=== PATIENT | male | born 1955 | race Caucasian/White ===

== ENCOUNTER 2016-10-20 15:35 | Emergency (ER) | payer BC ==
[2016-10-20] MEDS ORDERED: LORazepam 2 MG/ML MDV IVPUSH ONE (16:04)
[2016-10-20] MEDS ORDERED: Sodium Chloride 0.9% 10 ML Syringe FLUSH PRN (16:04)
--- NOTE | 2016-10-20 16:11 | EDM.PDOC ---
ED HPI GENERAL MEDICAL PROBLEM - General Chief Complaint: Chest Pain Stated Complaint: CHEST PAIN/FLUTTERING Time Seen by Provider: 10/20/16 15:41 Source of Information: Reports: Patient History Limitations: Reports: No Limitations - History of Present Illness INITIAL COMMENTS - FREE TEXT/NARRATIVE: Patient is a 61-year-old male who presents to the ED complaining of a fluttering sensation to his chest. 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 States this fluttering sensation was located to the center of his chest that only lasted for a short period of time. During the interview patient developed similar symptoms as earlier again with also shaking of his arms and hands only lasting for a short period of time. He became lightheaded with no sensation was going to pass out. Denies any shortness of breath or chest pain. States he did become mildly clammy with this episode. Again symptoms resolved. While driving back to [place] where he is staying for the evening he developed another similar episode that was again was short lived and has completely resolved prior admission to the ED. He did have one episode of chest pain to the right upper sternal border describes as a tightness sensation that resolved quickly. Currently has no symptoms. 1 year ago he had similar symptoms and had a full cardiac workup minus heart catheterization. Testing included: stress test, echocardiogram, and Lexiscan. No abnormalities noted. Cause of symptoms related to stress. There is no family history of first degree relative with heart disease. Patient has a history of hypertension, acid reflux, hypercholesteremia, and asthma. Treatments [employer]: Reports: Aspirin Middle Chest Pain Score (Numeric/FACES): 4 - Related Data Allergies Allergy/AdvReac Type Severity Reaction Status Date / Time No Known Allergies Allergy Verified 10/20/16 15:43 Past Medical History Cardiovascular History: Reports: High Cholesterol, Hypertension Respiratory History: Reports: Asthma Psychiatric History: Reports: Anxiety Social & Family History - Family History Family Medical History: Noncontributory - Tobacco Use Smoking Status *Q: Never Smoker - Caffeine Use Caffeine Use: Reports: Coffee - Recreational Drug Use Recreational Drug Use: No ED ROS GENERAL - Review of Systems Review Of Systems: ROS reveals no pertinent complaints other than HPI. ED EXAM, GENERAL - Physical Exam Exam: See Below Exam Limited By: No Limitations General Appearance: Alert, WD/WN, No Apparent Distress Ears: Hearing Grossly Normal Nose: Normal Inspection Throat/Mouth: Normal Voice, No Airway Compromise Neck: Normal Inspection Respiratory/Chest: No Respiratory Distress, Lungs Clear, Normal Breath Sounds, No Accessory Muscle Use Cardiovascular: Normal Peripheral Pulses, Regular Rate, Rhythm, No Murmur Peripheral Pulses: 2+: Radial (L), Radial (R) GI/Abdominal: Normal Bowel Sounds, Soft, Non-Tender, No Organomegaly, No Distention Back Exam: Normal Inspection Extremities: Normal Inspection, Normal Range of Motion, Non-Tender, No Pedal Edema, Normal Capillary Refill Neurological: Alert, Oriented, CN II-XII Intact, Normal Cognition, No Motor/ Sensory Deficits Psychiatric: Normal Affect, Normal Mood Skin Exam: Warm, Dry, Intact, Normal Color Course - Vital Signs Last Recorded V/S: Last Vital Signs Temp 97.3 F 10/20/16 15:38 Pulse 62 10/20/16 18:15 Resp 14 10/20/16 18:15 BP 138/75 10/20/16 18:15 Pulse Ox 96 10/20/16 18:15 - Orders/Labs/Meds Labs: Laboratory Tests 10/20/16 10/20/16 10/20/16 Range/Units 16:41 16:41 19:25 WBC 7.13 (4.23-9.07) K/mm3 RBC 4.43 L (4.63-6.08) M/mm3 Hgb 13.8 (13.7-17.5) gm/L Hct 38.8 L (40.1-51.0) % MCV 87.6 (79.0-92.2) fl MCH 31.2 (25.7-32.2) pg MCHC 35.6 H (32.2-35.5) g/dl RDW Std Deviation 40.4 (35.1-43.9) fL Plt Count 220 (163-337) K/mm3 MPV 8.7 L (9.4-12.3) fl Neut % (Auto) 60.0 (34.0-67.9) % Lymph % (Auto) 30.6 (21.8-53.1) % Mclennan % (Auto) 7.7 (5.3-12.2) % Eos % (Auto) 1.0 (0.8-7.0) Baso % (Auto) 0.3 (0.1-1.2) % Neut # (Auto) 4.28 (1.78-5.38) K/mm3 Lymph # (Auto) 2.18 (1.32-3.57) K/mm3 Mclennan # (Auto) 0.55 (0.30-0.82) K/mm3 Eos # (Auto) 0.07 (0.04-0.54) K/mm3 Baso # (Auto) 0.02 (0.01-0.08) K/mm3 Sodium 142 (136-145) mEq/L Potassium 3.4 L (3.5-5.1) mEq/L Chloride 104 (98-107) mEq/L Carbon Dioxide 33 H (21-32) mEq/L Anion Gap 8.4 (5-15) BUN 6 L (7-18) mg/dL Creatinine 0.9 (0.7-1.3) mg/dL Est Cr Clr Drug Dosing 99.88 mL/min Estimated GFR (MDRD) > 60 (>60) mL/min BUN/Creatinine Ratio 6.7 L (14-18) Glucose 104 (74-106) mg/dL Calcium 9.0 (8.5-10.1) mg/dL Total Bilirubin 0.6 (0.2-1.0) mg/dL AST 20 (15-37) U/L ALT 37 (16-63) U/L Alkaline Phosphatase 51 (46-116) U/L Troponin I < 0.017 < 0.017 (0.00-0.056) ng/mL C-Reactive Protein < 0.2 (<1.0) mg/dL Total Protein 6.7 (6.4-8.2) g/dl Albumin 3.8 (3.4-5.0) g/dl Globulin 2.9 gm/dL Albumin/Globulin Ratio 1.3 (1-2) TSH 3rd Generation 1.811 (0.358-3.74) uIU/mL Meds: Medications Discontinued Medications Generic Name Dose Route Start Last Admin Trade Name Freq PRN Reason Stop Dose Admin Lorazepam 0.5 mg 10/20/16 16:04 10/20/16 17:31 Ativan IVPUSH 10/20/16 16:05 0.5 mg ONETIME ONE Administration Sodium Chloride 10 ml 10/20/16 16:04 10/20/16 17:25 Saline Flush FLUSH 10 ml ASDIRECTED PRN Administration Keep Vein Open - Re-Assessments/Exams Free Text/Narrative Re-Assessment/Exam: Peripheral IV started. Ativan administered 0.5 mg IVP. Initial labs and studies include CBC, TSH, chem 14, CRP, EKG, chest x-ray two-view, and serial troponins. 10/20/16 16:10 EKG: NSR with no acute ST changes. Labs reviewed: Labs reviewed: White blood cell count 7.13, hemoglobin 13.8, no neutrophilia, sodium 142, potassium 3.4, crit 0.9, glucose 104, liver enzymes within normal limits, troponin less than 0.017, CRP less than 0.2, TSH 1.811. 10/20/16 18:25 Heart Score 0-3: 0.9-1.7% risk of adverse cardiac event. CXR: Reviewed with Dr. Slaughter. Unknown abnormality noted to the left upper lobe. Suggested radiologist interpret. 2032 04 troponin negative. Still awaiting for CXR interpretation. Reassessment , patient has had no complaints while admission to the ED. 10/20/16 21:26 Still awaiting for CXR interpretation. 10/20/16 22:03 Still awaiting for CXR interpretation. 10/20/16 22:22 Finally received results of chest x-ray impression: No acute findings. Area of increased density in the left upper lung overton appears to be summation artifact. Would suggest a 6 week follow-up PA and lateral view. Reassessment, Patient is pain-free. He has had no symptoms throughout ED visit. Will discharge home. Departure - Departure Time of Disposition: 22:23 Disposition: Home, Self-Care 01 Condition: Good Clinical Impression: Atypical chest pain, Anxiety, Heart palpitations Instructions: Nonspecific Chest Pain, [id number] Referrals: PCP,Not In Area [Primary Care Provider] - Forms: ED Department Discharge Additional Instructions: Will have you follow-up with your PCP in the next week for reevaluation. EKG and troponin levels were normal. Etiology of symptoms most likely stress related but this is a diagnosis of exclusion. Suggest lose followup with PCP and discussing if Holter monitor is appropriate. Additional cardiac testing may be required. Per Heart Score you are at low risk of cardiac event. In addition CXR revealed increased density in the left upper lung field which appears to be artifact. Suggests a 6 wk followup with CXR 2 view. Call and make an appt tomorrow. Continue taking all your home medications as prescribed. Return to ED as needed for any new or worsening symptoms.
[2016-10-20 18:29] VITALS: BP 138/75
--- NOTE | 2016-10-21 07:02 | CR ---
Chest: Portable view of the chest was obtained. Comparison: No previous chest x-ray. Heart size and mediastinum are within normal limits. Slight increased density within the left upper chest is seen most likely due to summation of density from the first costochondral junction and clavicle. Lungs otherwise are clear. Bony structures are grossly intact. Impression: 1. Nothing acute is identified on portable chest x-ray. Follow-up two-view chest x-ray recommended to make sure left upper lobe density does not represent any additional abnormality other than summation artifact. Diagnostic code #1 I agree with preliminary report issued by [facility] ([facility] preliminary report dictated on 10/20/16, 11:17 PM Central Time)
== END 2016-10-20 22:38 | disposition home or self-care (01) ==
LOC: JD.ED 15:35
DX: R07.89 Other chest pain (principal); F41.9 Anxiety disorder, unspecified; I10 Essential (primary) hypertension; E78.00 Pure hypercholesterolemia, unspecified; J45.909 Unspecified asthma, uncomplicated
CPT/HCPCS: 36415; 71010; 80053; 84443; 84484; 85025; 86140; 93005; 96374; 99285; J2060; J7050; 99284